=== PATIENT | male | born 1945 | race Caucasian/White ===

== ENCOUNTER 2019-09-19 11:26 | Emergency (ER) | payer MEDICARE, OTHER ==
[2019-09-19] MEDS ORDERED: Ketorolac *IM* INJ* 60 MG/2 ML VIAL IM ONE (12:20)
[2019-09-19 12:33] LABS: ABS Lymphocytes 0.6 10^3/ul (1.0-4.8); ABS Monocytes 0.8 10^3/ul (0-0.8); ABS Neutrophils 9.7 10^3/ul (1.5-7.7); Eosinophil % 0.2 %; Hematocrit 40 % (42-52); Hemoglobin 13.3 g/dL (14.0-18.0); Lymphocyte % 5.1 %; Mean Corpuscular HGB Conc 34 g/dL (31-36); Mean Corpuscular Hemoglobin 31 pg (27-31); Mean Corpuscular Volume 91 fL (80-94); Mean Platelet Volume 7.6 fL (7.4-10.4); Platelet Count 195 10^3/uL (150-450); Red Blood Count 4.35 10^6 /uL (4.18-5.48); Red Cell Distribution Width 14 % (10-15); White Blood Count 11.1 10^3/uL (3.5-10.8)
[2019-09-19 12:49] LABS: Urine Appearance Cloudy; Urine Bacteria 3+ (Absent); Urine Bilirubin Negative (Negative); Urine Blood Negative (Negative); Urine Color Amber; Urine Glucose Negative (Negative); Urine Ketones Trace (Negative); Urine Nitrite Positive (Negative); Urine Protein 1+(30 mg/dL) (Negative); Urine Red Blood Cell 2+(6-10/hpf) (Absent); Urine Specific Gravity 1.018 (1.010-1.030); Urine Urobilinogen Negative (Negative); Urine White Blood Cell 3+(>20/hpf) (Absent)
[2019-09-19 12:52] LABS: Albumin 3.8 g/dL (3.2-5.2); Albumin/Globulin Ratio 1.2 (1-3); BUN/Creatinine Ratio 16.2 (8-20); C Reactive Protein 108.2 mg/L (<8.01); Calcium 9.2 mg/dL (8.6-10.3); EGFR African American 83.3 (>60); EGFR Non-African American 68.9 (>60); Globulin 3.2 g/dL (2-4); Potassium 4.2 mmol/L (3.5-5.0); Total Bilirubin 1.9 mg/dL (0.2-1.0)
--- NOTE | 2019-09-19 13:40 | ED ---
GI/ HPI - HPI Summary HPI Summary: 74 year old male presents to the ED with a chief complaint of right testicular pain and enlargement starting yesterday evening. The pain is especially severe when he is moving, for example when he is getting out of bed or out of his car. The pain is a 10/10 when he touches his testicle. Patient also reports pain in his lower abdomen, subjective fever last night, and associated diaphoresis. Pt denies any chills, erythema of eyes, sore throat, CP, SOB, cough, N/V, dysuria, hematuria, myalgia, edema, rash, dizziness, back pain, recent trauma, or new sexual partners. Patient reports that his patient is darker than usual. No history of testicular pain. - History of Current Complaint Chief Complaint: EDAbdPain Time Seen by Provider: 09/19/19 12:03 Stated Complaint: ABD PAIN PER PT Hx Obtained From: Patient Onset/Duration: Started Hours Ago, Still Present Timing: Constant - But severe when touched or during movement Severity: Mild Current Severity: Mild Pain Intensity: 2 Location of Pain: Suprapubic Additional Locations for Males: Testicles Pain Characteristics: Sharp Pain Radiates to: Inguinal Associated Signs and Symptoms: Positive: Diaphoresis, Fever, Abdominal Pain Aggravating Factor(s): Palpation, Movement Alleviating Factor(s): Rest - Allergy/Home Medications Allergies/Adverse Reactions: Allergies Allergy/AdvReac Type Severity Reaction Status Date / Time Sulfa (Sulfonamide Allergy Unknown Verified 09/19/19 12:28 Antibiotics) Reaction Details Home Medications: Home Medications Multivitamins/Minerals TAB* [Theragran/minerals TAB*] 1 tab PO DAILY 09/19/19 [ History Confirmed 09/19/19] [place]-3 Fatty Acids/Fish Oil [Fish Oil 1,000 mg Softgel] 2,000 mg PO DAILY 09/19 [History Confirmed 09/19/19] Vitamin E 1 cap PO DAILY 09/19/19 [History Confirmed 09/19/19] PMH/Surg Hx/FS Hx/Imm Hx Cardiovascular History: Reports: Hx Coronary Artery Disease, Other Cardiovascular Problems/Disorders - cardiac stents x3 History: Reports: Hx Kidney Stones - Cancer History Cancer Type, Location and Year: PROSTATE 1999 - Surgical History Surgery Procedure, Year, and Place: 3 STENTS 2016. LEFT LEG 1962. RIGHT WRIST 1963 Infectious Disease History: No Infectious Disease History: Denies: Traveled Outside the [place] in Last 30 Days - Family History Known Family History: Negative: Hypertension, Diabetes - Social History Alcohol Use: Occasionally Substance Use Type: Reports: None Smoking Status (MU): Unknown if Ever Smoked Review of Systems Positive: Fever - subjective, Skin Diaphoresis. Negative: Chills Negative: Erythema Negative: Sore Throat Negative: Chest Pain Negative: Shortness Of Breath, Cough Positive: Abdominal Pain. Negative: Vomiting, Nausea Positive: pain - testicular. Negative: dysuria, hematuria Negative: Myalgia, Edema Negative: Rash Neurological: Negative - neg dizziness All Other Systems Reviewed And Are Negative: Yes Physical Exam - Summary Physical Exam Summary: Constitutional: Well-developed, Well-nourished, Alert. (-) Distressed Skin: Warm, Dry HENT: Normocephalic; Atraumatic Eyes: Conjunctiva normal Neck: Musculoskeletal ROM normal neck. (-) JVD, (-) Stridor, (-) Tracheal deviation Cardio: Rhythm regular, rate normal, Heart sounds normal; Intact distal pulses; The pedal pulses are 2+ and symmetric. Radial pulses are 2+ and symmetric. (-) Murmur Pulmonary/Chest wall: Effort normal. (-) Respiratory distress, (-) Wheezes, (-) Rales Abd: Soft, (-) tenderness, (-) Distension, (-) Guarding, (-) Rebound Musculoskeletal: (-) Edema Lymph: (-) Cervical adenopathy Neuro: Alert, Oriented x3 Psych: Mood and affect Normal Genital: Erythematous swollen right testicle tender to palpation, especially on the medial border. Triage Information Reviewed: Yes Vital Signs On Initial Exam: Initial Vitals Temp Pulse Resp BP Pulse Ox 99.0 F 65 14 128/66 98 09/19/19 11:30 09/19/19 11:30 09/19/19 11:30 09/19/19 11:30 09/19/19 11:30 Vital Signs Reviewed: Yes Procedures - Sedation Patient Received Moderate/Deep Sedation with Procedure: No Diagnostics - Vital Signs Vital Signs Temp Pulse Resp BP Pulse Ox 09/19/19 11:30 99.0 F 65 14 128/66 98 - Laboratory Lab Results: Lab Results 09/19/19 09/19/19 09/19/19 Range/Units 12:13 12:23 12:23 WBC 11.1 H (3.5-10.8) 10^3/uL RBC 4.35 (4.18-5.48) 10^6 /uL Hgb 13.3 L (14.0-18.0) g/dL Hct 40 L (42-52) % MCV 91 (80-94) fL MCH 31 (27-31) pg MCHC 34 (31-36) g/dL RDW 14 (10-15) % Plt Count 195 (150-450) 10^3/uL MPV 7.6 (7.4-10.4) fL Neut % (Auto) 87.4 % Lymph % (Auto) 5.1 % [place] % (Auto) 7.0 % Eos % (Auto) 0.2 % Baso % (Auto) 0.3 % Absolute Neuts (auto) 9.7 H (1.5-7.7) 10^3/ul Absolute Lymphs (auto) 0.6 L (1.0-4.8) 10^3/ul Absolute Monos (auto) 0.8 (0-0.8) 10^3/ul Absolute Eos (auto) 0.0 (0-0.6) 10^3/ul Absolute Basos (auto) 0.0 (0-0.2) 10^3/ul Absolute Nucleated RBC 0.0 10^3/ul Nucleated RBC % 0.0 Sodium 139 (135-145) mmol/L Potassium 4.2 (3.5-5.0) mmol/L Chloride 104 (101-111) mmol/L Carbon Dioxide 31 (22-32) mmol/L Anion Gap 4 (2-11) mmol/L BUN 17 (6-24) mg/dL Creatinine 1.05 (0.67-1.17) mg/dL Est GFR ( Amer) 83.3 (>60) Est GFR (Non-Af Amer) 68.9 (>60) BUN/Creatinine Ratio 16.2 (8-20) Glucose 101 H (70-100) mg/dL Lactic Acid (0.5-2.0) mmol/L Calcium 9.2 (8.6-10.3) mg/dL Total Bilirubin 1.90 H (0.2-1.0) mg/dL AST 17 (13-39) U/L ALT 17 (7-52) U/L Alkaline Phosphatase 64 (34-104) U/L C-Reactive Protein 108.20 H (<8.01) mg/L Total Protein 7.0 (6.4-8.9) g/dL Albumin 3.8 (3.2-5.2) g/dL Globulin 3.2 (2-4) g/dL Albumin/Globulin Ratio 1.2 (1-3) Lipase 21 (11.0-82.0) U/L Urine Color [place] Urine Appearance Cloudy Urine pH 5.0 (5-9) Ur Specific [place] 1.018 (1.010-1.030) Urine Protein 1+(30 mg/dl) A (Negative) Urine Ketones Trace A (Negative) Urine Blood Negative (Negative) Urine Nitrate Positive A (Negative) Urine Bilirubin Negative (Negative) Urine Urobilinogen Negative (Negative) Ur Leukocyte Esterase 3+ A (Negative) Urine WBC (Auto) 3+(>20/hpf) A (Absent) Urine RBC (Auto) 2+(6-10/hpf) A (Absent) Urine Bacteria 3+ A (Absent) Urine Glucose Negative (Negative) Urine Ascorbic Acid * A (Negative) 09/19/19 Range/Units 12:23 WBC (3.5-10.8) 10^3/uL RBC (4.18-5.48) 10^6 /uL Hgb (14.0-18.0) g/dL Hct (42-52) % MCV (80-94) fL MCH (27-31) pg MCHC (31-36) g/dL RDW (10-15) % Plt Count (150-450) 10^3/uL MPV (7.4-10.4) fL Neut % (Auto) % Lymph % (Auto) % [place] % (Auto) % Eos % (Auto) % Baso % (Auto) % Absolute Neuts (auto) (1.5-7.7) 10^3/ul Absolute Lymphs (auto) (1.0-4.8) 10^3/ul Absolute Monos (auto) (0-0.8) 10^3/ul Absolute Eos (auto) (0-0.6) 10^3/ul Absolute Basos (auto) (0-0.2) 10^3/ul Absolute Nucleated RBC 10^3/ul Nucleated RBC % Sodium (135-145) mmol/L Potassium (3.5-5.0) mmol/L Chloride (101-111) mmol/L Carbon Dioxide (22-32) mmol/L Anion Gap (2-11) mmol/L BUN (6-24) mg/dL Creatinine (0.67-1.17) mg/dL Est GFR ( Amer) (>60) Est GFR (Non-Af Amer) (>60) BUN/Creatinine Ratio (8-20) Glucose (70-100) mg/dL Lactic Acid 1.6 (0.5-2.0) mmol/L Calcium (8.6-10.3) mg/dL Total Bilirubin (0.2-1.0) mg/dL AST (13-39) U/L ALT (7-52) U/L Alkaline Phosphatase (34-104) U/L C-Reactive Protein (<8.01) mg/L Total Protein (6.4-8.9) g/dL Albumin (3.2-5.2) g/dL Globulin (2-4) g/dL Albumin/Globulin Ratio (1-3) Lipase (11.0-82.0) U/L Urine Color Urine Appearance Urine pH (5-9) Ur Specific [place] (1.010-1.030) Urine Protein (Negative) Urine Ketones (Negative) Urine Blood (Negative) Urine Nitrate (Negative) Urine Bilirubin (Negative) Urine Urobilinogen (Negative) Ur Leukocyte Esterase (Negative) Urine WBC (Auto) (Absent) Urine RBC (Auto) (Absent) Urine Bacteria (Absent) Urine Glucose (Negative) Urine Ascorbic Acid (Negative) Result Diagrams: 09/19/19 12:23 09/19/19 12:23 Lab Statement: Any lab studies that have been ordered have been reviewed, and results considered in the medical decision making process. - CT AP CT CT Interpretation Completed By: Radiologist Summary of CT Findings: 1. AGAIN NOTED IS A RIGHT SCROTAL FLUID COLLECTION. THIS CORRESPONDS TO THE COMPLEX FLUIDCOLLECTION NOTED ON SONOGRAPHY. THERE IS NO APPRECIABLE LOCULATED FLUID COLLECTION. 2. THE EPIDIDYMIS IS HETEROGENEOUS AND ENHANCING CONSISTENT WITH EPIDIDYMOORCHITIS NOTED. ON SONOGRAPHY. 3. THERE IS A RIGHT VARICOCELE NOTED ON THE CURRENT CT EXAMINATION. 4. 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 THIS MAY BE CHRONIC THERE IS THICKENING OF THE RIGHT ILIUM AT THE LEVEL OF THE STONE. 5. ATHEROSCLEROSIS. An ED physician has reviewed this report. - Ultrasound Testicular US Ultrasound Interpretation Completed By: Radiologist Summary of Ultrasound Findings: 1. NO TESTICULAR PARENCHYMAL MASS. 2. NO SONOGRAPHIC FEATURES OF TORSION. PLEASE NOTE THAT PARTIAL OR INTERMITTENT TORSION MAY BE SONOGRAPHICALLY NORMAL. 3. THE RIGHT EPIDIDYMIS AND TESTICLE ARE HYPERVASCULAR, CONSISTENT WITH RIGHT EPIDIDYMOORCHITIS. THERE IS A 0.7 CM FLUID COLLECTION IN THE TAIL OF EPIDIDYMIS CONSISTENT. WITH A SMALL EPIDIDYMAL ABSCESS. THERE IS A COMPLEX RIGHT HYDROCELE. THE DIFFERENTIAL INCLUDES PYOCELE. 4. LEFT VARICOCELE. An ED physician has reviewed this report. GIGU Course/Dx - Course Course Of Treatment: 74 year old male presents to the ED with right testicular pain and enlargement, starting last night. His pain is worse with movement and palpation. He reports subjective fever and sweats. Pt denies any chills, erythema of eyes, sore throat, CP, SOB, cough, N/V, dysuria, hematuria, myalgia , edema, rash, dizziness, back pain, recent trauma, or new sexual partners. Physical exam is normal except for an erythematous swollen right testicle tender to palpation, especially on the medial border. The testicular ultrasound shows the followin. NO TESTICULAR PARENCHYMAL MASS. 2. NO SONOGRAPHIC FEATURES OF TORSION. PLEASE NOTE THAT PARTIAL OR INTERMITTENT TORSION MAY BE SONOGRAPHICALLY NORMAL. 3. THE RIGHT EPIDIDYMIS AND TESTICLE ARE HYPERVASCULAR, CONSISTENT WITH RIGHT. EPIDIDYMOORCHITIS. THERE IS A 0.7 CM FLUID COLLECTION IN THE TAIL OF EPIDIDYMIS CONSISTENT WITH A SMALL EPIDIDYMAL ABSCESS. THERE IS A COMPLEX RIGHT HYDROCELE. THE DIFFERENTIAL INCLUDES PYOCELE. 4. LEFT VARICOCELE. Abdominal/Pelvic CT shows the followin. AGAIN NOTED IS A RIGHT SCROTAL FLUID COLLECTION. THIS CORRESPONDS TO THE COMPLEX FLUIDCOLLECTION NOTED ON SONOGRAPHY. THERE IS NO APPRECIABLE LOCULATED FLUID COLLECTION. 2. THE EPIDIDYMIS IS HETEROGENEOUS AND ENHANCING CONSISTENT WITH EPIDIDYMOORCHITIS NOTED. ON SONOGRAPHY. 3. THERE IS A RIGHT VARICOCELE NOTED ON THE CURRENT CT EXAMINATION. 4. 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 THIS MAY BE CHRONIC THERE IS THICKENING OF THE RIGHT ILIUM AT THE LEVEL OF THE STONE. 5. ATHEROSCLEROSIS. Lab results show WBC 11.1, Hgb 13.3, Hct 40, total bilirubin 1.90, c-reactive protein 108.20, urine protein 1+(30 mg/dl) A, trace A urine ketones, positive A urine nitrate, 3+ A urine leukocyte esterase, 3+(>20/hpf) A urine WBC, 2+(6-10/ hpf) A urine RBC, 3+ A urine bacteria, and a presence of urine ascorbic acid. Prostate exam is normal. I talked to Dr. Yost, outpatient urologist in [place], [place], at 16:16. I explained the 7 mm abcess to him. He recommended Bactrim and for the patient to follow up with him in the next week. No procedure required. Diagnosis is epididymo-orchitis. He should follow up with Dr. Yost in the next week and return to the emergency room if he experiences new or worsening symptoms. - Diagnoses Provider Diagnoses: Epididymo-orchitis - Physician Notifications Discussed Care Of Patient With: Mulugeta Yost MD - Urology Time Discussed With Above Provider: 16:16 Instructed by Provider To: Other - 1616: Spoke with Dr Yost outpatient urologist in [place], explained 7mm abcess to him. He recommended Bactrim and for the patient to follow up with him in the next week. No procedure required. Discharge ED - Sign-Out/Discharge Documenting (check all that apply): Patient Departure - discharge - Discharge Plan Condition: Stable Disposition: HOME Prescriptions: Ketorolac TAB * [Toradol TAB *] 10 mg PO Q6H PRN #15 tab PRN Reason: Pain - Severe Levofloxacin TAB* [Levaquin TAB*] 500 mg PO DAILY #14 tab Patient Education Materials: Epididymo-Orchitis (ED) Referrals: Mulugeta Yost MD [Medical Doctor] - Additional Instructions: Follow up with Dr. Yost, Urology, within the next 7 days. Return to the Emergency Department if you experience new or worsened symptoms. - Attestation Statements Document Initiated by Scribe: Yes Documenting Scribe: Manjinder Solis Provider For Whom Scribe is Documenting (Include Credential): Irving Macias MD Scribe Attestation: Manjinder Martino, scribed for Irving Macias MD on 09/19/19 at 1633. Status of Scribe Document: Ready
[2019-09-19] MEDS ORDERED: Iohexol 300* (CONTRAST) 10 ML SDV IV ONE (13:51)
[2019-09-19] MEDS ORDERED: Piperacillin/Tazobac ADVAN(*) 3.375 GM in NS 0.9% 100 ML* 100 ML IVPB ONE (14:00)
[2019-09-19] MEDS ORDERED: NS 0.9% 100 ML* 100 ML ONE (14:56)
[2019-09-19] MEDS ORDERED: Levofloxacin TAB* 500 MG PO ONE (16:21)
[2019-09-19 16:57] VITALS: BP 106/57
== END 2019-09-19 16:55 | disposition home or self-care (01) ==
LOC: ED 11:26
DX: N45.3 Epididymo-orchitis (principal); N13.2 Hydronephrosis with renal and ureteral calculous obstruction; I25.10 Atherosclerotic heart disease of native coronary artery without angina pectoris; Z95.5 Presence of coronary angioplasty implant and graft; Z88.2 Allergy status to sulfonamides; Z79.82 Long term (current) use of aspirin; Z79.899 Other long term (current) drug therapy
CPT/HCPCS: 36415; 74177; 76870; 80053; 81003; 81015; 83605; 83690; 85025; 86140; 87077; 87086; 87186; 96365; 96372; 99283; J1885; J2543; Q9967